=== PATIENT | female | born 1990 | race Asian ===

== ENCOUNTER 2017-10-06 12:40 | Emergency (ER) | payer OTHER ==
[~2017-10-06] VITALS: Ht 165.1 cm; Wt 104.3 kg
[2017-10-06] MEDS ORDERED: NEXPLANON68 MG SUB-Q (12:55)
[2017-10-06] MEDS ORDERED: KETOROLAC TROME10 MG PO (13:40)
== END 2017-10-06 13:48 | disposition home or self-care (01) ==
LOC: ED 12:40
DX: S93.401A Sprain of unspecified ligament of right ankle, initial encounter (principal); Z79.899 Other long term (current) drug therapy; X50.9XXA Other and unspecified overexertion or strenuous movements or postures, initial encounter
CPT/HCPCS: 73630; 99283

== ENCOUNTER → 2017-11-16 | Emergency (ER) | payer OTHER ==
[~2017-11-16] VITALS: Ht 165.1 cm; Wt 104.3 kg
[~2017-11-16] MED LIST: IBUPROFEN600 MG PO; KETOROLAC TROME10 MG PO; NEXPLANON68 MG SUB-Q
== END ==
LOC: ED 14:27
DX: F44.4 Conversion disorder with motor symptom or deficit (principal); R51 Headache; Z79.899 Other long term (current) drug therapy
CPT/HCPCS: 70450; 99284

== ENCOUNTER 2020-02-25 10:51 | Inpatient (IN) | payer OTHER ==
--- NOTE | 2020-02-26 12:30 | NUR ---
WAS ASKED TO PLACE AN ULTRASOUND IV START THE PT HAS HAD A HISTORY OF DIFFICULT IV STARTS AND WAS ATTEMPTED BY [facility]. ATTEMPTED TO START HER IV 3 TIMES. EVERY ATTEMPT HAD BLOOD RETURN BUT THE CATHETER WOULD NOT ADVANCED INTO THE VEIN. STERILE ULTRASOUND GEL WAS USED AND EVERY SITE CLEANSED WELL BEFORE ATTEMPT. LIDOCAINE WAS USED PRIOR TO STARTS. PT TOLERATED WELL. 2 ATTEMPTS WERE MADE TO THE RIGHT FOREARM AND 1 ATTEMPT TO THE LEFT FOREARM. LORENE BENAVIDEZ IN [facility] NOTIFIED OF INABILITY TO PLACE AN IV.
--- NOTE | 2020-02-26 16:09 | NUR ---
02/26/20 1609 Soraida Qureshi 1601-PATIENT ARRIVED TO ROOM 106 FOR PACU. PATIENT AWAKE ON RA RR EVEN. DENIES PAIN OR NAUSEA. SR. FUNDUS FIRM MIDLINE 1 BELOW UMBILICUS LIGHT RUBRA DRAINAGE ON GRANT PAD. SPINAL LEVEL AT T8.
--- NOTE | 2020-02-27 11:08 | PR ---
[facility] [address] [facility] [place] [address] Signed PP Progress Notes Datetime Report Generated by CPN: 02/27/2020 11:08 SUBJECTIVE: [id number] Pain: Within Normal Limits Nausea/Vomiting: Denies Vital Signs: [id number] Vital Signs: Reviewed; Within Normal Limits EXAM: Ongoing Abdomen/Uterus: Normal Lochia: Normal Extremities: Normal Incision: Normal IMPRESSION/PLAN/PROCEDURES: [id number] Impression: Normal Progression Plan: Continue Present Management Procedures: Tubal Ligation Progress Notes: Doing well, without complaint, moving without difficulty Signing Physician: Samir Rios MD Copies: ~ *Electronically Signed* 02/27/20 1108 SAMIR RIOS MD PATIENT NAME: JACKIE PEREZ PROGRESS NOTE DATE OF : [birth year] PHYSICIAN: SAMIR RIOS MD RPT #: [id number] REPORT IS CONFIDENTIAL AND NOT TO BE RELEASED WITHOUT AUTHORIZATION
--- NOTE | 2020-02-28 13:03 | PR ---
[facility] [address] [place] [address] Signed PP Progress Notes Datetime Report Generated by CPN: 02/28/2020 13:02 SUBJECTIVE: [id number] Pain: Within Normal Limits Nausea/Vomiting: Denies Vital Signs: [id number] Vital Signs: Reviewed; Within Normal Limits Notable Details: PP Hgb/Hct = 10.5/32.6 EXAM: Ongoing Abdomen/Uterus: Normal Lochia: Normal Extremities: Normal Incision: Normal Exam Comments: obese IMPRESSION/PLAN/PROCEDURES: [id number] Impression: Normal Progression Plan: Discharge Procedures: None Progress Notes: Doing well, without complaint, wants to go home. Signing Physician: Samir Rios MD Copies: ~ *Electronically Signed* 02/28/20 1302 SAMIR RIOS MD PATIENT NAME: JACKIE PEREZ PROGRESS NOTE DATE OF : 90 PHYSICIAN: SAMIR RIOS MD RPT #: [id number] REPORT IS CONFIDENTIAL AND NOT TO BE RELEASED WITHOUT AUTHORIZATION
--- NOTE | 2020-02-29 12:27 | OR ---
[facility] [address] [place], [place] [address] Signed DATE OF OPERATION: 02/26/2020 SURGEON: Theodore Guidry MD Patient of Dr. Guidry. PREOPERATIVE DIAGNOSIS: Term , previous section. POSTOPERATIVE DIAGNOSIS: Term , previous section plus breech presentation. PROCEDURE: Repeat low transverse segment section, delivery live male infant. LOCAL [employer]ER [employer]IVER: Atiya Tariq DO ANESTHESIA: Spinal. ESTIMATED BLOOD LOSS: 500 mL. COMPLICATIONS: None. DRAINS: Jang to bladder. FINDINGS: A live male infant, Apgars 9 and 9. Weight 7 pounds 13 ounces. Normal uterus, normal tubes and ovaries bilateral. DESCRIPTION OF PROCEDURE: The patient was brought into the operating room, placed in supine position after adequate spinal anesthesia was obtained, was prepped and draped in usual sterile fashion. Jang catheter was placed in the bladder. A Pfannenstiel skin incision was made through previous surgical scar using a scalpel. Subcutaneous tissue was dissected with the Bovie. The fascia was nicked with scalpel and extended in transverse fashion Electronically Signed By: THEODORE GUIDRY MD 02/29/20 1227 PATIENT NAME: JACKIE PEREZ OPERATIVE REPORT DATE OF : [birth year] REPORT #: [id number] PHYSICIAN: THEODORE GUIDRY MD PCP: SOLIS,FARZANEH R [employer]PER[employer] WORKER REPORT IS CONFIDENTIAL AND NOT TO BE RELEASED WITHOUT AUTHORIZATION [facility] [address] [place], [place] [address] Signed using curved scissors. The underlying abdominal musculature was bluntly and sharply from the fascia above and below the incision. The abdominal musculature was bluntly and sharply along the midline. The peritoneum was grasped with hemostats, elevated, nicked with curved scissors, extended in vertical fashion using curved scissors. The Solo self-retaining retractor was inserted into the incision and tightened in place. The lower uterine segment was identified, carefully nicked with scalpel. Clear fluid came from the incision was noted to be in a vertex right sacrum anterior breech presentation. Infant's buttocks were easily delivered. The legs were individually delivered and the delivered back up to the shoulder where the arms were individually delivered and the head easily followed. Cord was doubly clamped and cut and the infant passed off the table in fair condition to awaiting nurse. The placenta was manually removed and uterine cavity explored a lap pad to remove any retained membranes. An angle stitch of 0 Monocryl was placed at one end of the incision and a running locking stitch of 0 Monocryl starting at the other end used to close the incision. A second running stitch of 0 Monocryl was used to imbricate the 1st layer. Good hemostasis was noted. Entire pelvis was irrigated, suctioned examined. Any superficial bleeding spots were cauterized with the Bovie. When good hemostasis was obtained, the Solo retractor was removed and sheet of ACell placed over the lower uterine segment to help with healing. The anterior wall peritoneum was then closed using running stitch of 2-0 Vicryl suture. Abdominal musculature was reapproximated using interrupted stitches of 0 Vicryl suture. The abdominal wall incision was irrigated, suctioned, examined. Any bleeding spots were cauterized with the Bovie. The abdominal musculature was then sprinkled with powdered ACell again to help with healing. The fascia was then closed using 2 running stitches of 0 Vicryl suture meeting in the midline. Subcutaneous tissue was irrigated, suctioned examined any bleeding spots cauterized with the Bovie. Subcutaneous tissue then closed using interrupted stitches of 3-0 Vicryl suture and the skin reapproximated using skin clips. The patient tolerated the procedure well, went to recovery room in good condition. The sponge, needle, and instrument counts were correct at the end of procedure. Theodore Guidry MD MJB/MODL /[id number] Electronically Signed By: THEODORE GUIDRY MD 02/29/20 1227 PATIENT NAME: JACKIE PEREZ OPERATIVE REPORT DATE OF : [birth year] REPORT #: [id number] PHYSICIAN: THEODORE GUIDRY MD PCP: FARZANEH ELY REPORT IS CONFIDENTIAL AND NOT TO BE RELEASED WITHOUT AUTHORIZATION [facility] [address] [place] [address] [place] [address] Signed Copies: ~ Electronically Signed By: THEODORE GUIDRY MD 02/29/20 1227 PATIENT NAME: JACKIE PEREZ OPERATIVE REPORT DATE OF : [birth year] REPORT #: [id number] PHYSICIAN: THEODORE GUIDRY MD PCP: FARZANEH ELY REPORT IS CONFIDENTIAL AND NOT TO BE RELEASED WITHOUT AUTHORIZATION
== END 2020-02-28 13:47 | disposition home or self-care (01) | DRG 788 ==
LOC: FBC 02-26 09:00
PROVIDERS: ADMIT General Practice; ATTEND General Practice
PROC: 10D00Z1 Extraction of Products of Conception, Low, Open Approach (ICD-10-PCS; principal; 2020-02-26 11:45)
PROC: 3E0234Z Introduction of Serum, Toxoid and Vaccine into Muscle, Percutaneous Approach (ICD-10-PCS; 2020-02-28)
DX: O34.211 Maternal care for low transverse scar from previous cesarean delivery (principal); N85.8 Other specified noninflammatory disorders of uterus; Z37.0 Single live birth; O32.1XX0 Maternal care for breech presentation, not applicable or unspecified; Z23 Encounter for immunization; Z87.891 Personal history of nicotine dependence; Z3A.39 39 weeks gestation of pregnancy
CPT/HCPCS: 01961; 36415; 85027; 90707; A9270; J0690; J1644; J2001; J2274; J2405; J2590; J3010; J7121

== ENCOUNTER 2024-05-27 13:24 | Emergency (ER) | payer OTHER ==
[~2024-05-27] VITALS: Ht 165.1 cm; Wt 94.3 kg
[2024-05-27] MEDS ORDERED: PERCOCET 5-3251 EACH PO (17:50)
[2024-05-27 17:55] VITALS: BP 116/72
== END 2024-05-27 17:55 | disposition home or self-care (01) ==
LOC: ED 13:24
DX: R22.41 Localized swelling, mass and lump, right lower limb (principal)
CPT/HCPCS: 93971; 99283-25